=== PATIENT | female | born 1980 | race Asian ===

== ENCOUNTER 2018-06-05 01:21 | Inpatient (IN) | payer OTHER ==
[~2018-06-05] VITALS: Ht 162.6 cm; Wt 58.0 kg
[2018-06-05] MEDS ORDERED: NEWBORN KIT ONE (01:56)
[2018-06-05] MEDS ORDERED: MISOPROSTOL 200 MCG TABLET ONE (01:56)
[2018-06-05] MEDS ORDERED: LIDOCAINE 1%, 20ML ONE (01:56)
[2018-06-05] MEDS ORDERED: OXYTOCIN 30U/ 0.9% NaCL 500ML 500 ML ONE (01:57)
[2018-06-05] MEDS ORDERED: OXYTOCIN 30U/ 0.9% NaCL 500ML 500 ML IV PRN (02:01)
[2018-06-05] MEDS ORDERED: OXYTOCIN 30U/ 0.9% NaCL 500ML 500 ML IV ONE (02:01)
[2018-06-05] MEDS: D5%-LACTATED RINGERS 1,000 ML IV SCH ×2 (02:01→10:01)
[2018-06-05] MEDS: LACTATED RINGERS 1,000 ML IV SCH ×2 (02:15→04:36)
[2018-06-05] MEDS ORDERED: ONDANSETRON 2MG/ML, 2ML IVPush PRN (02:30)
[2018-06-05] MEDS ORDERED: TERBUTALINE 1 MG/ML, 1ML IVPush PRN (02:30)
[2018-06-05] MEDS ORDERED: FENTANYL PF 100 MCG/2ML IV PRN (02:30)
[2018-06-05] MEDS ORDERED: CALCIUM CARBONATE 500 MG TAB.CHEW PO PRN (02:30)
[2018-06-05 02:46] LABS: BASOPHILS # (AUTO) 0.01 x10^3/uL (0-0.1); BASOPHILS % (AUTO) 0 % (0-1); EOSINOPHILS # (AUTO) 0.02 x10^3/uL (0-0.4); EOSINOPHILS % (AUTO) 0 % (1-7); LYMPHOCYTES # (AUTO) 1.49 x10^3/uL (1-3.4); LYMPHOCYTES % (AUTO) 22 % (22-44); MD NO; MEAN CORPUSCULAR HEMOGLOBIN 28.3 pg (27.0-34.8); MEAN CORPUSCULAR HGB CONC 32.6 g/dL (32.4-35.8); MEAN CORPUSCULAR VOLUME 86.7 fL (80-100); MONOCYTES # (AUTO) 0.44 x10^3/uL (0.2-0.8); MONOCYTES % (AUTO) 7 % (2-9); NEUTROPHILS # (AUTO) 4.89 x10^3/uL (1.8-6.8); NEUTROPHILS % (AUTO) 71 % (42-75); PLATELET COUNT 169 x10^3/uL (130-400); RED BLOOD COUNT 4.31 x10^6/uL (3.82-5.3); RED CELL DISTRIBUTION WIDTH 13.3 % (9.6-15.2)
[2018-06-05] MEDS ORDERED: FENTANYL PF 100 MCG/2ML ONE ×2 (05:19→06:24)
[2018-06-05] MEDS: FENTANYL PF 100 MCG/2ML IVPush PRN ×2 (05:20→06:28)
[2018-06-05] MEDS ORDERED: LACTATED RINGERS 1,000 ML IV SCH (06:24)
[2018-06-05] MEDS ORDERED: FENTANYL/BUPIV./NS/PF 250 ML EPIDCONT SCH (06:24)
[2018-06-05] MEDS ORDERED: LACTATED RINGERS 1,000 ML IVBOLUS PRN (06:30)
[2018-06-05] MEDS: OXYTOCIN 30U/ 0.9% NaCL 500ML 500 ML IV SCH ×2 (08:23→18:23)
[2018-06-05] MEDS ORDERED: OXYcodone/APAP 5/325MG TABLET PO PRN (08:30)
[2018-06-05] MEDS ORDERED: IBUPROFEN 800 MG TABLET PO PRN (08:30)
[2018-06-05] MEDS ORDERED: ACETAMINOPHEN 325 MG TABLET PO PRN (08:30)
[2018-06-05] MEDS ORDERED: IBUPROFEN 600 MG TABLET PO PRN (08:30)
[2018-06-05] MEDS ORDERED: MISOPROSTOL 200 MCG TABLET PR PRN (08:30)
[2018-06-05] MEDS ORDERED: METHYLERGONOVINE 0.2 MG/ML IM PRN (08:30)
[2018-06-05] MEDS ORDERED: CARBOPROST TROMETHAMINE 250 MCG/ML, 1ML IM PRN (08:30)
[2018-06-05] MEDS: PRENATAL VIT/IRON/FA 1 EACH TABLET PO SCH (09:00)
[2018-06-05 10:20] VITALS: BP 107/67
[2018-06-05] MEDS ORDERED: IBUPROFEN 600 MG TABLET ONE (10:22)
[2018-06-05] MEDS ORDERED: OXYcodone/APAP 5/325MG TABLET ONE (10:22)
[2018-06-05 13:00] VITALS: BP 91/56
[2018-06-05 16:32] LABS: BASOPHILS % (AUTO) 0 % (0-1); EOSINOPHILS % (AUTO) 0 % (1-7); LYMPHOCYTES # (AUTO) 1.11 x10^3/uL (1-3.4); LYMPHOCYTES % (AUTO) 9 % (22-44); MD NO; MEAN CORPUSCULAR HEMOGLOBIN 28.6 pg (27.0-34.8); MEAN CORPUSCULAR HGB CONC 33.4 g/dL (32.4-35.8); MEAN CORPUSCULAR VOLUME 85.8 fL (80-100); MEAN PLATELET VOLUME 10.4 fL (7.4-10.4); MONOCYTES # (AUTO) 0.69 x10^3/uL (0.2-0.8); MONOCYTES % (AUTO) 6 % (2-9); NEUTROPHILS # (AUTO) 10.44 x10^3/uL (1.8-6.8); NEUTROPHILS % (AUTO) 85 % (42-75); PLATELET COUNT 150 x10^3/uL (130-400); RED BLOOD COUNT 3.96 x10^6/uL (3.82-5.3); RED CELL DISTRIBUTION WIDTH 13.2 % (9.6-15.2)
[2018-06-05 16:45] VITALS: BP 95/58
[2018-06-05 19:30] VITALS: BP 98/61
[2018-06-06 00:29] VITALS: BP 98/56
[2018-06-06 04:40] VITALS: BP 98/57
[2018-06-06 09:05] VITALS: BP 106/67
[2018-06-06] MEDS: PRENATAL VIT/IRON/FA 1 EACH TABLET PO SCH (09:54)
[2018-06-06] MEDS ORDERED: HYDR-3240 PO (11:13)
[2018-06-06] MEDS ORDERED: IBUP-1222 PO (11:13)
[2018-06-06] MEDS ORDERED: HYDR30CR RC (11:17)
[2018-06-06 20:00] VITALS: BP 100/63
[2018-06-07 07:53] VITALS: BP 96/62
[2018-06-07] MEDS: PRENATAL VIT/IRON/FA 1 EACH TABLET PO SCH (09:46)
== END 2018-06-07 13:20 | disposition home or self-care (01) | DRG 807 ==
LOC: LDOP 01:21 → LDIP 01:57 → 2NW 10:22
PROVIDERS: ADMIT Obstetrics & Gynecology; ATTEND Obstetrics & Gynecology
PROC: 10E0XZZ Delivery of Products of Conception, External Approach (ICD-10-PCS; principal; 2018-06-05)
PROC: 0KQM0ZZ Repair Perineum Muscle, Open Approach (ICD-10-PCS; 2018-06-05)
PROC: 3E033VJ Introduction of Other Hormone into Peripheral Vein, Percutaneous Approach (ICD-10-PCS; 2018-06-05)
DX: O42.92 Full-term premature rupture of membranes, unspecified as to length of time between rupture and onset of labor (principal); Z37.0 Single live birth; O70.1 Second degree perineal laceration during delivery; Z3A.38 38 weeks gestation of pregnancy; R33.9 Retention of urine, unspecified; O90.89 Other complications of the puerperium, not elsewhere classified
CPT/HCPCS: 36415; 85025; 86850; 86900; 89060; G0378; J3010; J2590; J7120; Q0114